=== PATIENT | female | born 1945 | race Caucasian/White ===

== ENCOUNTER 2017-04-14 14:00 | Outpatient (CLI) | payer MEDICARE, BC, OTHER | END 2017-04-14 14:01 | disposition home or self-care (01) | LOC: BICMAMMO 14:00 | PROVIDERS: ATTEND Family Medicine | DX: Z12.31 Encounter for screening mammogram for malignant neoplasm of breast (principal); R92.1 Mammographic calcification found on diagnostic imaging of breast | CPT/HCPCS: 77063; G0202; 77067 ==

== ENCOUNTER 2017-05-11 14:05 | Emergency (ER) | payer MEDICARE, BC, OTHER | END 2017-05-11 15:30 | disposition home or self-care (01) | LOC: SCSER 14:05 | DX: S46.211A Strain of muscle, fascia and tendon of other parts of biceps, right arm, initial encounter (principal); K21.9 Gastro-esophageal reflux disease without esophagitis; M79.89 Other specified soft tissue disorders; I48.91 Unspecified atrial fibrillation; E78.5 Hyperlipidemia, unspecified; M81.0 Age-related osteoporosis without current pathological fracture; I10 Essential (primary) hypertension; Z79.82 Long term (current) use of aspirin; Z79.899 Other long term (current) drug therapy; X50.1XXA Overexertion from prolonged static or awkward postures, initial encounter | CPT/HCPCS: 99283 ==

== ENCOUNTER 2017-10-16 02:35 | Observation (INO) | payer MEDICARE, BC, OTHER ==
[2017-10-16] MEDS ORDERED: Nitroglycerin 2% Ointment 1 INCH/1 GM Packet ONE (03:05)
[2017-10-16 03:16] LABS: #Basophils 0.1 thou/uL (0.0-0.2); #Eosinphils 0.3 thou/uL (0.0-0.7); #Lymphocytes 2.4 thou/uL (1.20-3.40); #Monocytes 0.8 thou/uL (0.11-0.59); #Neutrophils 4.4 thou/uL (1.40-6.50); %Basophils 1.6 % (0.0-1.0); %Eosinophils 3.4 % (0.0-10.0); %Lymphocytes 29.9 % (21.0-51.0); %Monocytes 9.8 % (0.0-10.0); %Neutrophils 55.3 % (42.0-75.0); Hemoglobin 12.6 g/dL (12.0-16.0); Mean Corpuscular HGB CONC 32.8 g/dL (32.0-36.0); Mean Corpuscular Volume 94.3 fl (81.0-99.0); Mean Platelet Volume 8.1 fL (7.4-10.4); Platelet Count 198 thou/uL (130-400); RBC Distribution Width 14.3 % (11.5-14.5); Red Blood Cell (RBC) Count 4.08 mill/uL (4.20-5.40)
[2017-10-16 03:26] LABS: ALT (SGPT) 34 U/L (8-55); AST (SGOT) 29 U/L (5-34); Albumin 3.9 g/dL (3.4-4.8); Alkaline Phosphatase 59 U/L (40-150); Anion Gap 14 mmol/L (10-20); BUN (Urea Nitrogen) 19 mg/dL (9.8-20.1); Bilirubin, Total 0.3 mg/dL (0.2-1.2); CK (CPK) 30 U/L (29-168); Calc. Creatinine Clearance 0 mL/min (70-130); Calcium 9.5 mg/dL (7.8-10.44); Carbon Dioxide 25 mmol/L (23-31); Chloride 107 mmol/L (98-107); Estimated GFR-MDRD 74; Globulin 2.9 g/dL (2.4-3.5); Glucose 106 mg/dL (83-110); Lipase 32 U/L (8-78); Potassium 4.3 mmol/L (3.5-5.1); Protein, Total 6.8 g/dL (6.0-8.3); Sodium 142 mmol/L (136-145)
[2017-10-16 03:27] LABS: CKMB 1.1 ng/mL (0-6.6); Troponin I Less than 0.010 ng/mL (< 0.028)
[2017-10-16] MEDS ORDERED: Lidocaine Viscous Sol 2% 15 ml UD Cup ONE (03:39)
[2017-10-16] MEDS ORDERED: Mag-Al Plus 1200 MG/1200 MG/120 MG/30 ML UDCUP ONE (03:39)
[2017-10-16] MEDS ORDERED: Acetaminophen 325 MG TAB PO PRN (06:12)
[2017-10-16] MEDS ORDERED: Ondansetron ODT 4 MG TAB SL PRN (06:12)
[2017-10-16] MEDS ORDERED: Ondansetron HCl/PF 4 MG/2 ML Vial IVP PRN (06:12)
[2017-10-16] MEDS ORDERED: Nitroglycerin 0.4 MG TAB (25 Tab Bottle) PO PRN (06:24)
[2017-10-16] MEDS ORDERED: hydrALAZINE 20 MG/ML VIAL SLOW IVP PRN (06:27)
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
[2017-10-16 06:46] VITALS: BMI 40.1
[2017-10-16 06:49] LABS: Troponin I Less than 0.010 ng/mL (< 0.028)
--- NOTE | 2017-10-16 08:07 | RAD ---
UPRIGHT PORTABLE CHEST 1 VIEW: Date: 10/16/17 HISTORY: 72-year-old female with history of chest pain, rheumatoid arthritis, fibromyalgia. COMPARISON: 05/16/16. FINDINGS: Numerous healed left rib fractures and left clavicle fracture. Heart size is normal. No confluent pne umonia, overt edema, or pleural effusion. IMPRESSION: No acute intrathoracic disease. POS: [facility]
[2017-10-16] MEDS ORDERED: HYDROcodone/Acetaminophen 10/325 mg Tablet PO PRN (08:13)
[2017-10-16] MEDS ORDERED: Cyclobenzaprine 10 MG TAB PO PRN (08:13)
[2017-10-16] MEDS ORDERED: LIGHT MINERAL OIL EA EYE SCH (08:15)
[2017-10-16] MEDS ORDERED: MIN OIL EA EYE SCH (08:15)
[2017-10-16] MEDS ORDERED: Labetalol HCl 100 MG/20 ML VIAL SLOW IVP PRN (08:19)
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
[2017-10-16] MEDS ORDERED: Potassium Chloride 20 MEQ TAB PO SCH (09:00)
[2017-10-16] MEDS ORDERED: Non-Formulary Item 1 EACH (Dexlansoprazole [Dexilant] 60 MG) PO SCH (09:00)
[2017-10-16] MEDS ORDERED: predniSONE 1 MG TAB PO SCH ×2 (09:00)
[2017-10-16] MEDS ORDERED: Cetirizine HCl 10 MG TAB PO SCH (09:00)
[2017-10-16] MEDS ORDERED: Gabapentin 300 MG CAP PO SCH (09:00)
[2017-10-16] MEDS ORDERED: Multivitamin W/ Minerals 1 TAB PO SCH (09:00)
[2017-10-16] MEDS ORDERED: Ascorbic Acid 500 mg Chewable Tablet PO SCH (09:00)
[2017-10-16] MEDS ORDERED: TURMERIC ROOT EXTRACT PO SCH (09:00)
[2017-10-16] MEDS ORDERED: Calcium Carbonate + Vit D 1 TAB PO SCH (09:00)
[2017-10-16] MEDS ORDERED: Enoxaparin Sodium 40 MG/0.4 ML SYRINGE SC SCH (09:00)
[2017-10-16] MEDS ORDERED: Lisinopril 10 MG TAB PO SCH (09:00)
[2017-10-16] MEDS ORDERED: LUTEIN PO SCH (09:00)
[2017-10-16] MEDS ORDERED: Non-Formulary Item 1 EACH (Ascorbic Acid [Vitamin C] 1,000 MG) PO SCH (09:00)
[2017-10-16] MEDS ORDERED: Furosemide 40 MG TAB PO SCH (09:00)
[2017-10-16] MEDS ORDERED: Flecainide 50 MG TAB PO SCH (09:00)
[2017-10-16] MEDS ORDERED: MULTIVIT MIN PO SCH (09:00)
[2017-10-16] MEDS ORDERED: PSYLLIUM HUSK PO SCH (09:00)
[2017-10-16] MEDS ORDERED: Furosemide 20 MG TAB PO SCH (09:00)
[2017-10-16] MEDS ORDERED: Non-Formulary Item 1 EACH (Carvedilol [Coreg] 12.5 MG) PO SCH (09:00)
[2017-10-16] MEDS ORDERED: cycloSPORINE 0.05% Ophthalmic Droperette EA EYE SCH ×2 (09:00)
[2017-10-16] MEDS ORDERED: Metamucil PACK PO SCH (09:00)
[2017-10-16] MEDS ORDERED: [UNRECOGNIZED DRUG - OTHER] PO SCH (09:00)
[2017-10-16] MEDS ORDERED: Carvedilol 6.25 MG TAB PO SCH (09:00)
[2017-10-16] MEDS ORDERED: Non-Formulary Item 1 EACH (Zinc [Zinc] 50 MG) PO SCH (09:00)
[2017-10-16] MEDS ORDERED: [UNRECOGNIZED DRUG - OTHER] PO SCH (09:00)
[2017-10-16] MEDS ORDERED: Lisinopril 20 MG TAB PO SCH (09:00)
[2017-10-16] MEDS ORDERED: Zinc Sulfate 220 MG CAP PO SCH (09:00)
[2017-10-16] MEDS ORDERED: Loratadine 10 MG TAB PO SCH (09:00)
[2017-10-16] MEDS ORDERED: predniSONE 5 MG TAB PO SCH (09:00)
[2017-10-16] MEDS ORDERED: ZEAXANT PO SCH (09:00)
[2017-10-16] MEDS ORDERED: Dabigatran 150 mg Capsule PO SCH (09:00)
[2017-10-16] MEDS ORDERED: Non-Formulary Item 1 EACH (Cholecalciferol (Vitamin D3) [Vitamin D3] 1,000 UNIT) PO SCH (09:00)
[2017-10-16] MEDS ORDERED: TURMERIC PO SCH (09:00)
[2017-10-16 09:43] LABS: Troponin I Less than 0.010 ng/mL (< 0.028)
--- NOTE | 2017-10-16 11:03 | HP ---
I have discussed the case with Dr. José Miguel West and agree with his assessment and plan. Ms. Tracey is a 72-year-old female patient admitted with left-sided chest pain. She has no prior his tory of coronary artery disease. She had the pain at home while waking to go to the restroom at 1:30 this morning. She was transported to the ED and given a GI cocktail which in fact did somewhat help the pain, but also made better by nitro. She has been admitted for further workup and evaluation. PHYSICAL EXAMINATION: VITAL SIGNS: Her blood pressure is currently 150/87. Her heart rate 70 and regular. She is afebril e. Her room air pulse ox is 94%. GENERAL: She is awake, alert, in no distress. HEENT: Normocephalic, atraumatic. No erythema or exudate. NECK: Supple, without JVD. CARDIAC: The PMI is in the fifth intercostal space midclavicular line. No gallop or murmur noted. LUNGS: Clear. No rales or wheezes. No use of accessory muscles. ABDOMEN: Flat and soft with minimal diffuse tenderness. No guarding, rebound or rigidity. EXTREMITIES: No edema. NEUROLOGIC: No focal deficits. LABORATORY DATA: CBC: White count is 8000, hemoglobin 12.6, hematocrit 38.4, MCV of 94. Chemistrie s: Sodium 142, potassium 4.3, chloride 107, bicarbonate 25, BUN 19, creatinine 0.77. Liver function s are normal. Her troponins are less than 0.010 x3. EKG shows no acute ischemic changes. ASSESSMENT: Chest pain. PLAN: Admit, trend troponins, perform a stress Myoview and proceed based on findings.
--- NOTE | 2017-10-16 13:36 | NM ---
CARDIAC SPECT: CLINICAL HISTORY: 72-year-old female with chest pain, atrial fibrillation, hypertension, dyslipidemia, and dyspnea. TECHNIQUE: A myocardial perfusion scan was performed using the single isotope one day protocol with technetium-9 9m sestamibi. 10 mCi were injected intravenously for the rest exam followed by 27 mCi for the stress exam. Pharmacologic stress with Adenosine was monitored and interpreted by Dr. Figueredo. FINDINGS: Homogeneous tracer distribution is seen in the myocardial segments on stress and rest images without fixed or reversible defects. GATED SPECT LVEF: 75%. WALL MOTION EXAM: Normal. IMPRESSION: Normal myocardial perfusion scan. POS: [facility]
[2017-10-16 13:38] VITALS: BP 136/63; TEMP 98.3
[2017-10-16] MEDS ORDERED: ADENOSINE 60 MG/20 ML VIAL ONE (15:28)
[2017-10-16] MEDS ORDERED: Iopamidol 370 76% 100 ML VIAL ONE (16:36)
[2017-10-16] MEDS ORDERED: Atorvastatin Calcium 20 MG TAB PO SCH (21:00)
[2017-10-16] MEDS ORDERED: Pravastatin Sodium 20 MG TAB PO SCH (21:00)
[2017-10-16] MEDS ORDERED: Famotidine 20 MG TAB PO SCH (21:00)
[2017-10-16] MEDS ORDERED: Non-Formulary Item 1 EACH (Ranitidine Hcl [Ranitidine Hcl] 300 MG) PO SCH (21:00)
--- NOTE | 2017-10-17 02:16 | DIS-2 ---
DATE OF ADMISSION: 10/16/2017 DATE OF DISCHARGE: 10/16/2017 RESIDENT: Ryan Palomo DO ADMITTING ATTENDING: Binh Moraes MD DISCHARGE ATTENDING: Binh Moraes MD CONSULTS: None. PROCEDURES: Nuclear stress test which found homogeneous tracer distribution without fixed or reversible defects. Ejection fraction 75%, wall motion normal. Normal myocardial perfusion scan. Chest x-ray with findings of old healed rib fractures and left clavicle fracture. No acute process and CTA chest finding of hypodensity in the spleen, this is likely to represent benign finding. No evidence of PE. PRIMARY DIAGNOSES: 1. Atypical chest pain. 2. Suspected esophageal spasm. SECONDARY DIAGNOSES: Paroxysmal atrial fibrillation, hiatal hernia, GERD, osteoporosis, hyperlipidemia, hypertension, fibromyalgia, polymyalgia rheumatica , history of septic joint. DISCHARGE MEDICATIONS: Caltrate 1 tab p.o. daily, gabapentin 300 mg p.o. t.i.d. , Dexilant 60 mg p.o. daily, prednisone 5 mg p.o. q.a.m., prednisone 1 mg p.o. q.a.m., doxycycline 100 mg p.o. daily, ranitidine 300 mg p.o. at bedtime, pravastatin 80 mg p.o. at bedtime, Coreg 12.5 mg p.o. b.i.d., Pradaxa 150 mg p.o. b.i.d., aspirin 81 mg p.o. daily, Lasix 20 mg daily, retaine eyedrops 1 drop each eye daily, colestipol 2-4 grams p.o. daily, Restasis 1 drop each eye b.i.d., macular vitamin 1 p.o. daily, vitamin D3 1000 units p.o. daily, [place] 10 /325 one tab p.o. q.6 hours p.r.n. pain, K-Dur 20 mEq p.o. daily, Tambocor 50 mg p.o. b.i.d., lisinopril 20 mg p.o. daily, fentanyl patch 1 patch q.72 hours, turmeric 500 mg capsule 1 p.o. daily, Metamucil 0.52 gram capsule 1 tab p.o. daily, vitamin C 1000 mg p.o. daily, zinc 50 mg p.o. daily, Flexeril 10 mg p.o. t.i.d. p.r.n. pain, Zyrtec 10 mg daily, Premarin 0.625 mg p.o. daily, and Procardia 30 mg p.o. daily. DISCONTINUED MEDICATIONS: None. HOSPITAL COURSE: This is a 72-year-old female who is transferred from [facility] Room for concern of acute coronary artery syndrome. The patient has chronic diffuse pain; however, noted a new pain that onset yesterday that she described as deep and substernal squeezing-type chest pain that was associated with eating. This pain radiated both left and right shoulders. She described it also radiates to her back. She also stated that she was on cold sweats and felt diaphoretic. In this hospitalization emergency room, troponins were initially negative with no EKG changes. There was an elevated D-dimer of 0.68. CTA that was negative for PE. There were no other significant lab values. The patient was transferred to this facility for further workup. Upon arrival, the patient had a nuclear stress test which was also negative. Troponins were negative x3 over the course of the observation period. Upon further history, she says, this is a new pain and felt like she could not get her food down when she swallows, felt that if it was stuck in her throat and this was the pain that she was concerned about. Most likely diagnosis is an esophageal spasm. Therefore, the patient was started on a calcium-channel ene and instructed to follow up with the PCP for further evaluation and possible swallow studies. The patient felt that she was at baseline. There was some concern over the course of the hospitalization that she had consistently elevated blood pressures into the 200/100 range; however, at time of discharge, her blood pressure after receiving her daily meds with control of her what is apparent, anxiety. Her blood pressure was 136/63 at the time of discharge. It is recommended the patient follow up with PCP for further management of what appears to be an esophageal spasm. While controlled at the time of discharge, she will also need outpatient follow up concerning her hypertension. DISPOSITION: Stable. DISCHARGE INSTRUCTIONS: 1. Location: Home. 2. Diet: Heart healthy. 3. Activity: Ad geri. 4. Followup: Follow up with PCP within 1 week. MEL
[2017-10-17] MEDS ORDERED: NIFEdipine XL 30 MG TAB PO SCH (09:00)
== END 2017-10-16 15:42 | disposition home or self-care (01) ==
LOC: SCSER 02:35 → 2SW 04:38
PROVIDERS: ADMIT Family Medicine; ATTEND Family Medicine
DX: R07.89 Other chest pain (principal); I48.2 Chronic atrial fibrillation; K44.9 Diaphragmatic hernia without obstruction or gangrene; K21.9 Gastro-esophageal reflux disease without esophagitis; E78.5 Hyperlipidemia, unspecified; I10 Essential (primary) hypertension; M79.7 Fibromyalgia; M35.3 Polymyalgia rheumatica; Z79.52 Long term (current) use of systemic steroids; Z79.899 Other long term (current) drug therapy; Z88.2 Allergy status to sulfonamides; Z88.8 Allergy status to other drugs, medicaments and biological substances; Z79.82 Long term (current) use of aspirin; Z79.2 Long term (current) use of antibiotics
CPT/HCPCS: 71045; 71275; 78452; 80053; 82550; 82553; 83690; 84484 ×2; 85025; 85379; 93005; 93017; 94760; 96372; 96374; 97139 ×2; 99285; A9500; 36415; A4216; J0153; J0360; J1650; Q0162

== ENCOUNTER 2017-11-10 11:35 | Outpatient (CLI) | payer MEDICARE, BC, OTHER | END 2017-11-10 11:36 | disposition home or self-care (01) | LOC: BICRAD 11:35 | PROVIDERS: ATTEND Physician Assistant Medical | DX: M25.511 Pain in right shoulder (principal); M19.011 Primary osteoarthritis, right shoulder ==

== ENCOUNTER 2017-11-13 08:24 | Outpatient (CLI) | payer MEDICARE, BC, OTHER | END 2017-11-13 08:25 | disposition home or self-care (01) | LOC: BICMRI 08:24 | PROVIDERS: ATTEND Family Medicine | DX: M25.511 Pain in right shoulder (principal); M25.411 Effusion, right shoulder; M19.011 Primary osteoarthritis, right shoulder; S46.211A Strain of muscle, fascia and tendon of other parts of biceps, right arm, initial encounter; S46.011A Strain of muscle(s) and tendon(s) of the rotator cuff of right shoulder, initial encounter ==

== ENCOUNTER 2018-01-15 11:25 | Outpatient (CLI) | payer MEDICARE, BC, OTHER ==
--- NOTE | 2018-01-15 14:03 | RAD ---
ACUTE ABDOMINAL SERIES: DATE: 01/15/18. HISTORY: Bilateral abdominal pain greater on the left and in the lower abdomen. FINDINGS: CHEST X-RAY: Comparison was made with the study on 10/16/17. Cardiac silhouette and pulmonary vasculature are with in normal limits. The lungs are clear. Remote left-sided rib fractures and deformity of the left ch est wall are again present. No free intraperitoneal air is seen in the left hemidiaphragms. Degener ative change is noted in the spine. TWO VIEWS OF THE ABDOMEN: Surgical clips overlie the right upper quadrant. The bowel gas pattern is nonspecific. Vascular miguel cifications and phleboliths overlie the left hemipelvis. There are degenerative changes in the spine . IMPRESSION: Nonspecific bowel gas pattern. POS: [facility]
== END 2018-01-15 11:26 | disposition home or self-care (01) ==
LOC: SCSRAD 11:25
PROVIDERS: ATTEND Nurse Practitioner Family
DX: R10.9 Unspecified abdominal pain (principal)
CPT/HCPCS: 74022

== ENCOUNTER 2018-01-18 18:45 | Emergency (ER) | payer MEDICARE, BC, OTHER ==
[2018-01-18 20:12] LABS: #Basophils 0.1 thou/uL (0.0-0.2); #Eosinphils 0.1 thou/uL (0.0-0.7); #Lymphocytes 1.2 thou/uL (1.20-3.40); #Monocytes 0.6 thou/uL (0.11-0.59); #Neutrophils 2.7 thou/uL (1.40-6.50); %Basophils 1.4 % (0.0-1.0); %Eosinophils 1.3 % (0.0-10.0); %Lymphocytes 26.5 % (21.0-51.0); %Monocytes 12.6 % (0.0-10.0); %Neutrophils 58.3 % (42.0-75.0); Hemoglobin 10.6 g/dL (12.0-16.0); Mean Corpuscular HGB CONC 32.9 g/dL (32.0-36.0); Mean Corpuscular Hemoglobin 31.6 pg (27.0-31.0); Mean Corpuscular Volume 95.9 fL (78.0-98.0); Mean Platelet Volume 8.1 fL (7.4-10.4); Platelet Count 208 thou/uL (130-400); RBC Distribution Width 14.2 % (11.5-14.5); Red Blood Cell (RBC) Count 3.34 mill/uL (4.20-5.40); White Blood Cell (WBC) Count 4.6 thou/uL (4.8-10.8)
--- NOTE | 2018-01-18 20:13 | RAD ---
CHEST ONE VIEW: HISTORY: Dyspnea. COMPARISON: 10/16/2017 FINDINGS: Heart size is within normal limits. There are atherosclerotic changes of the aorta. Old left rib fr actures are seen. No acute process identified. IMPRESSION: No active intrathoracic disease. POS: [facility]
[2018-01-18 20:32] LABS: ALT (SGPT) 17 U/L (8-55); AST (SGOT) 18 U/L (5-34); Albumin 3.4 g/dL (3.4-4.8); Alkaline Phosphatase 57 U/L (40-150); Anion Gap 15 mmol/L (10-20); BUN (Urea Nitrogen) 16 mg/dL (9.8-20.1); Bilirubin, Total 0.2 mg/dL (0.2-1.2); CK (CPK) 41 U/L (29-168); Calc. Creatinine Clearance 0 mL/min (70-130); Calcium 8.9 mg/dL (7.8-10.44); Carbon Dioxide 23 mmol/L (23-31); Chloride 105 mmol/L (98-107); Estimated GFR-MDRD 60; Globulin 2.6 g/dL (2.4-3.5); Glucose 143 mg/dL (83-110); Sodium 138 mmol/L (136-145)
[2018-01-18 20:36] LABS: CKMB 1.4 ng/mL (0-6.6); Troponin I Less than 0.010 ng/mL (< 0.028)
--- NOTE | 2018-01-18 21:50 | ULT ---
RIGHT LOWER EXTREMITY VENOUS DOPPLER ULTRASOUND EVALUATION: HISTORY: Right lower extremity pain, edema, and redness. TECHNIQUE: Multiple longitudinal and transverse images of the right lower extremity venous system are obtained u sing a Multi-Hertz linear array transducer. FINDINGS: Real-time, color-flow, and spectral wave-form Doppler analysis demonstrates no evidence of acute or o ld clots seen in the right common femoral, superficial femoral, femoral profunda, popliteal, posterio r tibial, post trifurcation, and right greater saphenous veins. IMPRESSION: No evidence of right lower extremity deep venous thrombosis. POS: [facility]
[2018-01-18 22:32] LABS: Bilirubin Negative (Negative); Blood, Urine Negative (Negative); Clarity CLOUDY (Clear); Glucose, Urine (Dipstick) Negative (Negative); Leukocyte Negative (Negative); Nitrite Negative (Negative); Protein, Urine (Dipstick) Negative (Neg-Trace); Specific Gravity, Urine 1.022 (1.002-1.036); Urobilinogen 0.2 mg/dL (0.2-1.0); pH, Urine 6.5 (5.0-9.0)
== END 2018-01-18 23:31 | disposition home or self-care (01) ==
LOC: ERS 18:45
DX: M79.661 Pain in right lower leg (principal); G89.29 Other chronic pain; K21.9 Gastro-esophageal reflux disease without esophagitis; I48.91 Unspecified atrial fibrillation; E78.5 Hyperlipidemia, unspecified; I10 Essential (primary) hypertension; Z79.899 Other long term (current) drug therapy
CPT/HCPCS: 36415; 51701; 71045; 80053; 81003; 82550; 82553; 83880; 84484; 85025; 93005

== ENCOUNTER 2018-02-22 12:58 | Outpatient (CLI) | payer MEDICARE, BC, OTHER ==
--- NOTE | 2018-02-22 15:16 | MRI ---
RIGHT SHOULDER MRI WITHOUT IV CONTRAST: History: 72-year-old female with history of disorder of rotator cuff. History of right shoulder pain. Technique: Multiplanar, multisequence MRI examination of the right shoulder performed. Comparison: 11-13-17 FINDINGS: Again noted are full thickness significantly retracted tears of the supraspinatus and infraspinatus t endons with considerable associated muscle volume loss of the supraspinatus and infraspinatus muscle which appear more marked than on the prior 11-13-17 study. I do not see an intact biceps tendon, evide nce for complete biceps tendon tear. In addition, there appears to be at least a partial thickness te ar of the more superior fibers of the subscapularis tendon at the insertion. Evidence for degenerativ e type slap tear. IMPRESSION: Extensive rotator cuff tears as well as superior labral degenerative type tear. Moderate to severe mu scle volume loss of the supraspinatus and infraspinatus muscles which appear more marked than on the prior 11-13-17 study. POS: [facility]
== END 2018-02-22 12:59 | disposition home or self-care (01) ==
LOC: MRI 12:58
PROVIDERS: ATTEND Nurse Practitioner Family
DX: M67.911 Unspecified disorder of synovium and tendon, right shoulder (principal); M75.101 Unspecified rotator cuff tear or rupture of right shoulder, not specified as traumatic

== ENCOUNTER 2018-09-30 10:51 | Outpatient (CLI) | payer MEDICARE, BC, OTHER ==
--- NOTE | 2018-09-30 13:36 | MRI ---
MRI CERVICAL SPINE WITHOUT CONTRAST: COMPARISON: 08/27/2016. HISTORY: Cervical spondylosis, without myelopathy. Left shoulder pain. Headache. TECHNIQUE: Cervical spine MRI is performed without intravenous Gadolinium administration. Multisequential, mult iplanar imaging is performed. FINDINGS: Appropriate T1 marrow signal intensity of the cervical vertebrae. Vertebral body height is maintaine d. No fracture. No significant STIR hyperintensity to suggest vertebral body edema or ligamentous i njury. Visualized brain parenchyma, cervicomedullary junction, cervical cord, and the upper thoracic cord sims ve a normal size and signal intensity. C2-C3: No significant central canal stenosis. Neural foramen are patent. C3-C4: No significant central canal stenosis. Neural foramen are patent. C4-C5: Central disk bulge abuts the thecal sac. No significant central canal stenosis. Neural fora rocio are patent. C5-C6: Broad-based disk-osteophyte complex effaces the ventral subarachnoid space. There is mild de formity of the ventral cervical cord, without cord hyperintensity. Mild central canal stenosis. Mil d bilateral foraminal narrowing due to uncovertebral hypertrophy. C6-C7: No significant central canal stenosis or neural foraminal narrowing. C7-T1: No significnat central canal stenosis or neural foraminal narrowing. IMPRESSION: Degenerative change of the cervical spine as detailed above. No significant central canal stenosis o r neural foraminal narrowing. POS: [facility]
== END 2018-09-30 10:52 | disposition home or self-care (01) ==
LOC: BICMRI 10:51
PROVIDERS: ATTEND Nurse Practitioner Family
DX: M47.812 Spondylosis without myelopathy or radiculopathy, cervical region (principal)
CPT/HCPCS: 72141

== ENCOUNTER 2019-05-20 05:02 | Emergency (ER) | payer MEDICARE, BC, OTHER | END 2019-05-20 06:13 | disposition home or self-care (01) | LOC: ERS 05:02 | DX: M25.511 Pain in right shoulder (principal); R19.2 Visible peristalsis; M79.7 Fibromyalgia; K21.9 Gastro-esophageal reflux disease without esophagitis; I49.9 Cardiac arrhythmia, unspecified; I48.91 Unspecified atrial fibrillation; E78.5 Hyperlipidemia, unspecified; E78.00 Pure hypercholesterolemia, unspecified; I10 Essential (primary) hypertension; Z79.899 Other long term (current) drug therapy; Z79.82 Long term (current) use of aspirin | CPT/HCPCS: 99283 ==

== ENCOUNTER 2020-01-24 07:17 | Outpatient (CLI) | payer MEDICARE, BC, OTHER ==
[2020-01-24 14:16] LABS: #Eosinphils 0.2 thou/uL (0.0-0.7); #Lymphocytes 2.1 thou/uL (1.20-3.40); #Monocytes 0.4 thou/uL (0.11-0.59); #Neutrophils 2.3 thou/uL (1.40-6.50); %Basophils 0.9 % (0.0-1.0); %Eosinophils 4.3 % (0.0-10.0); %Lymphocytes 40.5 % (21.0-51.0); %Neutrophils 46.2 % (42.0-75.0); Hemoglobin 12.3 g/dL (12.0-16.0); Mean Corpuscular HGB CONC 32.9 g/dL (32.0-36.0); Mean Corpuscular Hemoglobin 32.1 pg (27.0-31.0); Mean Corpuscular Volume 97.4 fL (78.0-98.0); Mean Platelet Volume 9.2 fL (7.4-10.4); Platelet Count 166 thou/uL (130-400); RBC Distribution Width 12.9 % (11.5-14.5); Red Blood Cell (RBC) Count 3.83 mill/uL (4.20-5.40); White Blood Cell (WBC) Count 5.1 thou/uL (4.8-10.8)
[2020-01-24 14:36] LABS: Anion Gap 15 mmol/L (10-20); BUN (Urea Nitrogen) 20 mg/dL (9.8-20.1); Calc. Creatinine Clearance 0 mL/min (70-130); Calcium 9.2 mg/dL (7.8-10.44); Carbon Dioxide 25 mmol/L (23-31); Chloride 105 mmol/L (98-107); Estimated GFR-MDRD 77; Glucose 85 mg/dL (83-110); Potassium 4.6 mmol/L (3.5-5.1); Sodium 140 mmol/L (136-145)
[2020-01-25 11:57] LABS: SARS-CoV-2 MS2 Positive; SARS-CoV-2 N Gene Negative; SARS-CoV-2 S Gene Negative; SARS-CoV-2 by NAA Not Detected (NotDetected); SARS-CoV-2 orf1ab Negative
== END 2020-01-24 07:18 | disposition home or self-care (01) ==
LOC: LABBT 07:17
PROVIDERS: ATTEND Orthopaedic Surgery
DX: Z01.818 Encounter for other preprocedural examination (principal); Z20.828 Contact with and (suspected) exposure to other viral communicable diseases; G56.01 Carpal tunnel syndrome, right upper limb
CPT/HCPCS: 80048; 85025; 93005; U0003; 87635; 93010

== ENCOUNTER 2020-01-27 07:23 | Day surgery (SDC) | payer MEDICARE, BC, OTHER ==
[2020-01-25 13:46] VITALS: BMI 32.8
[2020-01-27] MEDS ORDERED: Fentanyl 100 MCG/2 ML VIAL ONE (09:15)
[2020-01-27] MEDS ORDERED: Lidocaine 1% (PF) 30 ML VIAL ONE (09:18)
[2020-01-27] MEDS ORDERED: Lidocaine 1% PF 5 ML VIAL ONE (13:36)
[2020-01-27] MEDS ORDERED: Dexamethasone 20 MG/5 ML VIAL ONE (13:36)
[2020-01-27] MEDS ORDERED: PROPOFOL 200 MG/20 ML VIAL ONE (13:36)
[2020-01-27] MEDS ORDERED: Ondansetron PF 4 MG/2 ML Vial ONE (13:36)
--- NOTE | 2020-01-27 16:25 | OP ---
DATE OF PROCEDURE: 01/27/2020 PREOPERATIVE DIAGNOSIS: Right-sided carpal tunnel syndrome. POSTOPERATIVE DIAGNOSIS: Right-sided carpal tunnel syndrome. PROCEDURES PERFORMED: 1. Right open carpal tunnel release. 2. Placement of small volar splint, right upper extremity. OUTPATIENT ADMITTING CLERK: None. BLOOD LOSS: Minimal. COMPLICATIONS: None. ANESTHESIA: The patient did have a general anesthetic. DISPOSITION: She went to recovery room in stable condition. INDICATIONS: This is a 74-year-old female, who comes in complaining of pain, numbness, and tingling and starting to develop disability in the right hand secondary to severe carpal tunnel syndrome. At this time, she opted to have surgery to release this. DESCRIPTION OF PROCEDURE: After all appropriate consent forms were explained and signed, the patient was taken back to the operating room and at this time was given IV sedation. A well-padded tourniquet was placed on the right arm and the arm was then prepped and draped in the standard surgical fashion. The incision was then drawn out and infiltrated with plain lidocaine. Limb was exsanguinated and tourniquet taken up to 250 mmHg. At this time, using Loupe magnification, a 15 blade was used to incise down through skin. Bipolar cautery was used to coagulate any brisk venous bleeding. We then placed a small hemostat to protect the underlying median nerve and transected the transverse carpal ligament using multiple 15 blades as well as scissors. Once this was done, a small finger was inserted to palpate for any remaining bands. At this time, a moist Ray-Eleno sponge was placed into the wound. Tourniquet was let down and pressure was held. Bipolar cautery used to coagulate any brisk venous bleeding. The wound was then irrigated with saline solution and we then evaluated the nerve. The nerve was found to be significantly injected, the nerve was intact, there were no masses noted, and the underlying flexor tendons were in good condition. At this time, we irrigated and dried the wound. We then placed multiple nylon stitches to close the incision. A bulky sterile hand dressing and a small volar splint were then placed. The patient was then awakened and taken to recovery in stable condition. All counts were correct at the end of the case. The patient received preoperative IV antibiotics. Job ID: [id number]
== END 2020-01-27 12:35 | disposition home or self-care (01) ==
LOC: SDC 07:23
PROVIDERS: ATTEND Orthopaedic Surgery
PROC: 01N50ZZ Release Median Nerve, Open Approach (ICD-10-PCS; principal; 2020-01-27)
DX: G56.03 Carpal tunnel syndrome, bilateral upper limbs (principal); I11.0 Hypertensive heart disease with heart failure; I50.9 Heart failure, unspecified; E78.5 Hyperlipidemia, unspecified; E11.9 Type 2 diabetes mellitus without complications; K21.9 Gastro-esophageal reflux disease without esophagitis; M81.0 Age-related osteoporosis without current pathological fracture; I48.91 Unspecified atrial fibrillation; M79.7 Fibromyalgia; M35.3 Polymyalgia rheumatica; Z79.82 Long term (current) use of aspirin; Z79.83 Long term (current) use of bisphosphonates; Z79.899 Other long term (current) drug therapy; Z88.2 Allergy status to sulfonamides; Z88.8 Allergy status to other drugs, medicaments and biological substances
CPT/HCPCS: J0690; J1100; J2001; J2405; J2704; J3010

== ENCOUNTER 2021-11-01 15:23 | Emergency (ER) | payer MEDICARE, BC, OTHER ==
[2021-11-01 15:53] LABS: #Eosinphils 0.3 thou/uL (0.0-0.7); #Lymphocytes 0.8 thou/uL (1.20-3.40); #Monocytes 0.8 thou/uL (0.11-0.59); #Neutrophils 4.1 thou/uL (1.40-6.50); %Basophils 0.7 % (0.0-1.0); %Eosinophils 4.2 % (0.0-10.0); %Monocytes 13.8 % (0.0-10.0); %Neutrophils 68.3 % (42.0-75.0); Hemoglobin 11.7 g/dL (12.0-16.0); Mean Corpuscular HGB CONC 32.4 g/dL (32.0-36.0); Mean Corpuscular Hemoglobin 32.9 pg (27.0-31.0); Mean Platelet Volume 7.5 fL (7.4-10.4); Platelet Count 181 thou/uL (130-400); RBC Distribution Width 13.8 % (11.5-14.5); Red Blood Cell (RBC) Count 3.54 mill/uL (4.20-5.40); White Blood Cell (WBC) Count 6.1 thou/uL (4.8-10.8)
[2021-11-01 16:16] LABS: ALT (SGPT) 12 U/L (8-55); AST (SGOT) 21 U/L (5-34); Alkaline Phosphatase 87 U/L (40-110); Anion Gap 14 mmol/L (10-20); BUN (Urea Nitrogen) 17 mg/dL (9.8-20.1); Bilirubin, Total 0.2 mg/dL (0.2-1.2); Calc. Creatinine Clearance 0 mL/min (70-130); Calcium 9.3 mg/dL (7.8-10.44); Carbon Dioxide 25 mmol/L (23-31); Chloride 103 mmol/L (98-107); Estimated GFR 72; Globulin 3.2 g/dL (2.4-3.5); Glucose 106 mg/dL (83-110); Lipase 8 U/L (8-78); Potassium 4.5 mmol/L (3.5-5.1); Protein, Total 7.2 g/dL (5.8-8.1); Sodium 137 mmol/L (136-145)
[2021-11-01 16:53] LABS: SARS-CoV-2 NAA Rapid Test DETECTED (NotDetected)
[2021-11-01] MEDS ORDERED: Acetaminophen 500 MG TAB ONE (16:59)
[2021-11-01 19:42] LABS: Bilirubin Negative (Negative); Blood, Urine Negative (Negative); Clarity Clear (Clear); Glucose, Urine (Dipstick) Normal (Negative); Ketone, Urine Negative (Negative); Leukocyte Negative Leu/uL (Negative); Nitrite Negative (Negative); Protein, Urine (Dipstick) Negative (Neg-Trace); Specific Gravity, Urine 1.018 (1.002-1.036); Urobilinogen Normal mg/dL (Less than 2); pH, Urine 6.5 (5.0-9.0)
== END 2021-11-01 19:55 | disposition home or self-care (01) ==
LOC: ERS 15:23
DX: U07.1 COVID-19 (principal); R53.1 Weakness; K21.9 Gastro-esophageal reflux disease without esophagitis; M81.0 Age-related osteoporosis without current pathological fracture; I48.91 Unspecified atrial fibrillation; I10 Essential (primary) hypertension; E78.5 Hyperlipidemia, unspecified; E78.00 Pure hypercholesterolemia, unspecified; M79.7 Fibromyalgia
CPT/HCPCS: 0240U; 70450; 71045; 80053; 81003; 83605; 83690; 84484; 85025; 93005; 99285; 36415

== ENCOUNTER 2021-11-07 11:08 | Emergency (ER) | payer MEDICARE, BC, OTHER ==
[~2021-11-07 11:08] MED LIST: ISOVUE-370 76%-LOCM 1 ML ONE
[2021-11-07 12:26] LABS: #Lymphocytes 1.3 thou/uL (1.20-3.40); #Monocytes 0.3 thou/uL (0.11-0.59); #Neutrophils 1.8 thou/uL (1.40-6.50); %Basophils 0.8 % (0.0-1.0); %Eosinophils 1.1 % (0.0-10.0); %Lymphocytes 38.5 % (21.0-51.0); %Monocytes 8.5 % (0.0-10.0); %Neutrophils 51.2 % (42.0-75.0); Hemoglobin 13.1 g/dL (12.0-16.0); Mean Corpuscular HGB CONC 33.8 g/dL (32.0-36.0); Mean Corpuscular Hemoglobin 33.8 pg (27.0-31.0); Mean Platelet Volume 8.1 fL (7.4-10.4); Platelet Count 139 thou/uL (130-400); RBC Distribution Width 13.7 % (11.5-14.5); Red Blood Cell (RBC) Count 3.87 mill/uL (4.20-5.40); White Blood Cell (WBC) Count 3.5 thou/uL (4.8-10.8)
[2021-11-07 12:53] LABS: ALT (SGPT) 38 U/L (8-55); AST (SGOT) 44 U/L (5-34); Alkaline Phosphatase 92 U/L (40-110); Anion Gap 13 mmol/L (10-20); BUN (Urea Nitrogen) 20 mg/dL (9.8-20.1); Bilirubin, Total 0.3 mg/dL (0.2-1.2); Calc. Creatinine Clearance 0 mL/min (70-130); Calcium 9.7 mg/dL (7.8-10.44); Carbon Dioxide 29 mmol/L (23-31); Chloride 98 mmol/L (98-107); Estimated GFR 58; Globulin 3.1 g/dL (2.4-3.5); Glucose 153 mg/dL (83-110); Lipase 11 U/L (8-78); Potassium 4.1 mmol/L (3.5-5.1); Protein, Total 7.1 g/dL (5.8-8.1); Sodium 136 mmol/L (136-145)
[2021-11-07] MEDS ORDERED: Ondansetron PF 4 MG/2 ML Vial ONE (13:42)
[2021-11-07 16:29] LABS: Bilirubin Negative (Negative); Blood, Urine Negative (Negative); Clarity Clear (Clear); Glucose, Urine (Dipstick) Normal (Negative); Ketone, Urine Negative (Negative); Leukocyte Negative Leu/uL (Negative); Nitrite Negative (Negative); Protein, Urine (Dipstick) 20 mg/dL (Neg-Trace); Urobilinogen Normal mg/dL (Less than 2)
[2021-11-07 16:30] LABS: Specific Gravity, Urine 1.055 (1.002-1.036)
== END 2021-11-07 17:58 | disposition home or self-care (01) ==
LOC: ERS 11:08
DX: K59.00 Constipation, unspecified (principal); R21 Rash and other nonspecific skin eruption; I10 Essential (primary) hypertension; K21.9 Gastro-esophageal reflux disease without esophagitis; M81.0 Age-related osteoporosis without current pathological fracture; I48.91 Unspecified atrial fibrillation; E78.5 Hyperlipidemia, unspecified; E78.00 Pure hypercholesterolemia, unspecified; M79.7 Fibromyalgia
CPT/HCPCS: 36415; 71045; 74177; 80053; 81003; 83690; 84484; 85025; 93005; 94760; 96374; J2405; Q9966

== ENCOUNTER 2023-01-02 13:47 | Outpatient (CLI) | payer MEDICARE, BC, OTHER | END 2023-01-02 13:48 | disposition home or self-care (01) | LOC: BICMAMMO 13:47 | PROVIDERS: ATTEND Family Medicine | DX: N63.23 Unspecified lump in the left breast, lower outer quadrant (principal) | CPT/HCPCS: 76642 ×2; 77066; G0279 ==

== ENCOUNTER 2023-07-15 10:25 | Emergency (ER) | payer MEDICARE, BC, OTHER ==
[2023-07-15] MEDS ORDERED: Ketorolac Tromethamine 30 MG (1 mL) VIAL ONE ×2 (11:20→11:27)
== END 2023-07-15 12:16 | disposition home or self-care (01) ==
LOC: ERS 10:25
DX: M19.011 Primary osteoarthritis, right shoulder (principal); I10 Essential (primary) hypertension
CPT/HCPCS: 96372; J1885